=== PATIENT | male | born 1955 | race African-American/Black ===

== ENCOUNTER 2016-10-30 10:55 | Emergency (ER) | payer OTHER ==
[~2016-10-30] VITALS: Ht 180.3 cm; Wt 90.4 kg
[~2016-10-30 10:55] MED LIST: BABY ASPIRIN81 M1 PO; Diabeta,Micronase PO; Glucophage PO; HYDROCHLOROTHIA25 MG PO; LOPRESSOR25 MG PO; METOPROLOL SUCC50 MG; MULTI-VITAMIN1 EAC4 PO; Micro-K,K-Tab,K-Dur, PO; POTASSIUM; Pravachol PO; Zestril,Prinivil PO
[2016-10-30 12:17] VITALS: BP 166/88
== END 2016-10-30 12:18 | disposition home or self-care (01) ==
LOC: EME 10:55
PROC: 3E0234Z Introduction of Serum, Toxoid and Vaccine into Muscle, Percutaneous Approach (ICD-10-PCS; principal; 2016-10-30)
DX: S20.211A Contusion of right front wall of thorax, initial encounter (principal); S80.211A Abrasion, right knee, initial encounter; S90.01XA Contusion of right ankle, initial encounter; S40.211A Abrasion of right shoulder, initial encounter; S50.812A Abrasion of left forearm, initial encounter; M25.461 Effusion, right knee; V29.3XXA Motorcycle rider (driver) (passenger) injured in unspecified nontraffic accident, initial encounter; E11.9 Type 2 diabetes mellitus without complications; Z79.84 Long term (current) use of oral hypoglycemic drugs
CPT/HCPCS: 71100; 73564; 73610; 99281; 99284